=== PATIENT | male | born 1955 | race Caucasian/White ===

== ENCOUNTER 2017-01-03 21:45 | Inpatient (IN) | payer BC ==
[~2017-01-03] VITALS: Ht 185.4 cm; Wt 85.0 kg
--- NOTE | ~2017-01-03 | HP ---
PATIENT'S NAME: [facility] AGE: 61 Y [address] ROOM: [place] [address] LOCATION: [facility] ADMIT DATE: 01/03/2017 History & Physical DISCHARGE DATE: FAMILY PHYSICIAN: JUSTICE HOUSER NP ATTENDING PHYSICIAN: Nasim Montemayor DATE OF SERVICE: CHIEF COMPLAINT: Abdominal pain. REVIEW OF RECORD: The patient is a 61-year-old, previously healthy gentleman from [place], who on Tuesday morning had developed some nonspecific, vague abdominal discomfort. However, throughout the next 48 hours, it started to migrate to the right lower quadrant, became very tender and slightly distended. He had some nausea, no vomiting. He had low-grade fevers upon presentation to the emergency room in [place]. His white count was elevated at 15.3000, his urinalysis was okay. Liver function tests were fine. He had tenderness across his lower abdomen, mostly guarding in the right lower quadrant. A CT scan performed showed what looks like changes of acute appendicitis, maybe reactive colitis of the cecum. The patient states he has never had any problem with preceding diarrhea or abdominal pain similar to this. He has never had a colonoscopy, which I encouraged him to obtain. He has had no trauma to his belly, no previous surgical operations, no foreign travel. He was accepted in transfer from [place] for the diagnosis of acute appendicitis. PAST MEDICAL HISTORY: None. MEDICATIONS: None. ALLERGIES: SENSITIVITY TO PAIN PILLS WITH NAUSEA. ILLNESSES: None. OPERATIONS: Right lower leg rodding. SOCIAL HISTORY: He does not smoke or drink. 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 He is . PATIENT'S NAME: LETITIA [facility] AGE: 61 Y [address] ROOM: [address] [address] LOCATION: [facility] ADMIT DATE: 01/03/2017 History & Physical DISCHARGE DATE: FAMILY PHYSICIAN: JUSTICE HOUSER NP ATTENDING PHYSICIAN: Nasim Montemayor FAMILY HISTORY: Unrelated. REVIEW OF SYSTEMS: He reports fevers. Denies any vomiting, no history of peptic ulcer. No thyroid or diabetic disease. No shortness of breath, no chest pain. No dysuria or hematuria. No swollen joints. PHYSICAL EXAMINATION: GENERAL: He is a tall, thin individual, and appears to be in mild distress. HEENT: His head is normocephalic. His sclerae are nonicteric. Mucous membranes are dry. NECK: Supple. There is no adenopathy. LUNGS: Clear. HEART: Normal sinus rhythm. ABDOMEN: Positive bowel sounds. He is tender with guarding at McBurney's point, right lower quadrant. He has slight rebound. EXTREMITIES: He has 2/2 femoral and dorsalis pedis pulses. No peripheral edema. IMPRESSION: Acute appendicitis. PLAN: Appendectomy. Procedure benefits and risks explained. He agrees to proceed. MD NESSA CORONA/maliha /[id number] D: [id number] T: [id number] HISTORY & PHYSICAL
--- NOTE | ~2017-01-03 | OR ---
PATIENT'S NAME: [facility] AGE: 61 Y [address] ROOM: [place] [address] LOCATION: [facility] ADMIT DATE: 01/03/2017 OR/Procedure Report DISCHARGE DATE: FAMILY PHYSICIAN: JUSTICE HOUSER NP ATTENDING PHYSICIAN: Nasim De La Cruz SURGEON: Nasim De La Cruz MD ORNAMENTAL IRONWORKER: DATE OF PROCEDURE: 01/03/2017 PREOPERATIVE DIAGNOSIS: Acute appendicitis. POSTOPERATIVE DIAGNOSIS: Acute appendicitis with confined perforation. PROCEDURE: Laparoscopic appendectomy. ANESTHESIA: General with 12 mL 0.5% Marcaine. SPECIMENS: Appendix with evidence of perforation. ASA CLASS: Class 4 wound. ESTIMATED BLOOD LOSS: Less than 20 mL. SPECIMENS: Appendix. INDICATIONS: The patient is a 61-year-old gentleman with a greater than 48- hour history of abdominal pain, which is settled in the right lower quadrant, associated with fevers and elevated white count, CT findings of acute appendicitis and inflammatory change around the cecum. We recommended laparoscopic appendectomy. DESCRIPTION OF PROCEDURE: After informed consent, the patient was taken to the operating room, after general endotracheal anesthesia, the patient's abdomen was prepped and draped into a sterile field. Local anesthetic was infiltrated. A time-out was performed. We confirmed the patient, planned procedure, and administration of preop antibiotics. He had a sense of fullness on palpation of the right lower quadrant. We then injected local anesthetic below the umbilicus and made an incision and placed a Veress needle into the peritoneal cavity to create a pneumoperitoneum. We placed 5-mm trocar and scope. Safe entry was noted, the right upper quadrant 5-mm scope, and the suprapubic 12-mm scope. Trocar placed. Right lower quadrant had a lot of matting of the small bowel. There was exudative process. We stripped back down loops of small bowel and discovered the appendix. We folded back the terminal ilium and we had release of a confined perforated appendicitis. There was a hole on top of the appendix, the proximal portion was very PATIENT'S NAME: [facility] AGE: 61 Y [address] ROOM: [place] [address] LOCATION: [facility] ADMIT DATE: 01/03/2017 OR/Procedure Report DISCHARGE DATE: FAMILY PHYSICIAN: JUSTICE HOUSER NP ATTENDING PHYSICIAN: Nasim De La Cruz thickened along with the sigmoid bound to the wall of the cecum that I believe it was just an inflammatory response. We elevated up the thick mesoappendix and the base of the appendix was divided with 1 staple of an Endo-RENETTA 35. We placed the appendix into an EndoCatch bag and brought out through the 12 mm incision. We irrigated with several liters of fluid, the right lower quadrant as well as the right upper quadrant. We aspirated all the irrigation fluid. We then inspected our staple lines. There was hemostasis. Terminal ileum was found to be unremarkable. We removed the trocars, released pneumoperitoneum, closed the 12-mm fascia defect with 0 Vicryl, the skin closed with subcuticular 4-0 Vicryl. Steri-Strips and sterile dressings applied. The patient tolerated the procedure well and transferred to recovery room in stable condition. NASIM DE LA CRUZ MD WTS/modl /[id number] d: 01/04/178 t: 01/12/17 1610, OPERATIVE SUMMARY
[2017-01-05 05:39] LABS: BASOPHIL % 0.2 %; EOSINOPHIL % 0.3 %; HEMATOCRIT 39.6 % (37.0-53.0); HEMOGLOBIN 13.3 g/dL (12.0-17.0); IMMATURE GRANULOCYTE # 0.1 K/uL (0.0-0.3); IMMATURE GRANULOCYTE % 0.5 %; LYMPHOCYTE % 10.2 %; MCH 31.1 pg (27.0-34.0); MCHC 33.6 gm/dL (32.0-36.5); MCV 92.5 fl (83.0-98.0); MONOCYTE # 0.9 K/uL (0.0-1.0); MONOCYTE % 9.3 %; NEUTROPHIL # (ANC) 8.1 K/uL (1.4-9.0); NEUTROPHIL % 79.5 %; NRBC % 0 /100WBC (0-0.00); PLATELET COUNT 222 K/uL (150-450); RBC 4.28 M/uL (4.00-6.00); RDW-CV 12.7 % (11.9-14.6); WBC 10.2 K/uL (4.0-11.0)
[2017-01-05] MEDS ORDERED: NORCO 5-325 TA1 EACH PO (08:59)
[2017-01-05] MEDS ORDERED: AUGMENTIN 875-1 EACH PO (09:01)
== END 2017-01-05 10:35 | disposition disaster alternative care site (69) | DRG 340 ==
LOC: GNTU 21:45 → GMSU 22:57
PROVIDERS: ADMIT Surgery
PROC: 0DTJ4ZZ Resection of Appendix, Percutaneous Endoscopic Approach (ICD-10-PCS; principal; 2017-01-03)
DX: K35.2 Acute appendicitis with generalized peritonitis (principal)
CPT/HCPCS: J1100; J1335; J2175; J2405; J2550; J3010; J7120